=== PATIENT | male | born 1960 | race Caucasian/White ===

== ENCOUNTER 2018-10-24 15:40 | Inpatient (IN) | payer MEDICAID ==
[~2018-10-24] VITALS: Ht 162.6 cm; Wt 68.0 kg
[2018-10-24] MEDS ORDERED: KETOROLAC 30MG/ML VIAL IV STA (16:24)
[2018-10-24] MEDS ORDERED: IPRATROPIUM BROMIDE (0.02%) 0.5MG/2.5ML NEB HHN STA (16:24)
[2018-10-24] MEDS ORDERED: ALBUTEROL (0.083%) 2.5MG/3ML NEB HHN STA (16:24)
[2018-10-24] MEDS ORDERED: ONDANSETRON HCL 4MG/2ML INJ IV STA (16:24)
[2018-10-24] MEDS ORDERED: ASPIRIN 81MG TABLET PO ONE (16:30)
[2018-10-24 16:57] LABS: BASOPHILS % 0.5 % (0.0-2.0); EOSINOPHILS % 2.1 % (0.0-5.0); HEMATOCRIT. 34.7 % (42.0-52.0); HEMOGLOBIN. 10.5 g/dL (14.0-18.0); LYMPHOCYTES % 14.1 % (20.0-50.0); MEAN CORPUSCULAR HEMOGLOBIN 24.4 pg (28.0-32.0); MEAN CORPUSCULAR VOLUME 80.2 fL (80.0-94.0); MEAN PLATELET VOLUME 8.2 fl (7.4-10.4); MONOCYTES % 8.2 % (2.0-8.0); NEUTROPHILS % 75.1 % (40.0-76.0); PLATELET 235 x1000/uL (130-400); RED BLOOD CELL COUNT 4.32 mill/uL (4.7-6.1); RED CELL DISTRIBUTION WIDTH 18.8 % (11.6-14.6)
[2018-10-24 17:05] LABS: CHLORIDE 95 mEq/L (98-107)
[2018-10-24] MEDS ORDERED: METHYLPREDNISOLONE SOD SUCC 125 MG/2 ML VIAL IV ONE (18:15)
[2018-10-25] VITALS (7 sets, daily range): BP systolic 100–110; BP diastolic 51–70
[2018-10-25] MEDS ORDERED: TAMS0.4C31 PO (03:40)
[2018-10-25] MEDS ORDERED: METO25TA6 PO (03:40)
[2018-10-25] MEDS ORDERED: FURO40TA5 PO (03:40)
[2018-10-25] MEDS ORDERED: PANT40TA4 PO (03:40)
[2018-10-25] MEDS ORDERED: ASPI-1158 PO (03:40)
[2018-10-25] MEDS ORDERED: DOCU-286 PO (03:40)
[2018-10-25] MEDS ORDERED: ATROV INH (03:42)
[2018-10-25] MEDS ORDERED: DILT180C51 MT (03:45)
[2018-10-25] MEDS: METHYLPREDNISOLONE SOD SUCC 40 MG/ML VIAL IV SCH ×3 (05:49→21:25)
[2018-10-25] MEDS: PANTOPRAZOLE 40MG DR TABLET PO SCH (06:16)
[2018-10-25] MEDS ORDERED: DOCUSATE SODIUM 100 MG PO SCH (09:00)
[2018-10-25] MEDS ORDERED: DILTIAZEM HCL MT SCH ×2 (09:00)
[2018-10-25] MEDS: METOPROLOL TARTRATE 25MG TABLET PO SCH ×2 (09:00→21:25)
[2018-10-25] MEDS ORDERED: MEDICATION NOT ON FORMULARY EA (Aspirin (Aspirin Ec) 81 MG) PO SCH (09:00)
[2018-10-25] MEDS ORDERED: MEDICATION NOT ON FORMULARY EA (Pantoprazole Sodium 40 MG) PO SCH (09:00)
[2018-10-25] MEDS ORDERED: MEDICATION NOT ON FORMULARY EA (Metoprolol Tartrate 25 MG) PO SCH (09:00)
[2018-10-25] MEDS ORDERED: MEDICATION NOT ON FORMULARY EA (Furosemide 40 MG) PO SCH (09:00)
[2018-10-25] MEDS: IPRATROPIUM/ALBUTEROL 0.5-3(2.5)MG/3ML NEB HHN PRN ×3 (09:14→18:41)
[2018-10-25 09:21] LABS: HEMATOCRIT. 34.4 % (42.0-52.0); HEMOGLOBIN. 10.4 g/dL (14.0-18.0); MEAN CORPUSCULAR HEMOGLOBIN 24.3 pg (28.0-32.0); MEAN CORPUSCULAR VOLUME 80.3 fL (80.0-94.0); MEAN PLATELET VOLUME 8.7 fl (7.4-10.4); PLATELET 224 x1000/uL (130-400); RED BLOOD CELL COUNT 4.28 mill/uL (4.7-6.1); RED CELL DISTRIBUTION WIDTH 18.8 % (11.6-14.6)
[2018-10-25 09:30] LABS: CHLORIDE 94 mEq/L (98-107)
[2018-10-25 10:11] LABS: BG BASE EXCESS 13.4 mmol/L (-2.0-2.0); BG CARBOXYHEMOGLOBIN 2.1 % (0.5-1.5); BG DEOXYHEMOGLOBIN 12.6 % (0.0-5.0); BG FRACTION INSPIRED OXYGEN 32; BG HCO3 ACT 42.8 mmol/L (22.0-26.0); BG METHEMOGLOBIN 0.1 % (0.0-1.5); BG OXYGEN SATURATION 87.1 % (92.0-98.5); BG OXYHEMOGLOBIN 85.2 % (94.0-97.0); BG PCO2 86.5 mmHg (35.0-45.0); BG PH 7.312 (7.350-7.450); BG PO2 57.3 mmHg (75.0-100.0); BG SAMPLE SITE LEFT BRACHIAL; BG TOTAL HEMOGLOBIN 11.1 g/dL (12.0-18.0); BG VENT MODE NASAL CANNULA
[2018-10-25] MEDS: FUROSEMIDE 40MG TABLET PO SCH (10:17)
[2018-10-25] MEDS: DILTIAZEM HCL 180MG CAPSULE CD 24HR PO SCH (10:17)
[2018-10-25] MEDS: DOCUSATE SODIUM 100MG CAPSULE PO SCH (10:18)
[2018-10-25] MEDS: ASPIRIN 81MG TABLET PO SCH (10:18)
[2018-10-25] MEDS: ENOXAPARIN 40MG/0.4ML SYR SUBCUT SCH (10:18)
[2018-10-25] MEDS: TAMSULOSIN HCL 0.4MG SR CAPSULE PO SCH (10:19)
[2018-10-25 11:52] LABS: PLATELET ESTIMATE NORMAL
[2018-10-25] MEDS ORDERED: INFLUENZA VIRUS VACCINE(AFLURIA) 0.5ML SYR IM ONE (12:00)
[2018-10-25] MEDS: HYDROCODONE/ACETAMINOPHEN 5/325MG TABLET PO PRN (21:30)
[2018-10-26] VITALS: BP 120/72
[2018-10-26 04:00] VITALS: BP 112/72
[2018-10-26] MEDS: METHYLPREDNISOLONE SOD SUCC 40 MG/ML VIAL IV SCH ×3 (06:33→21:07)
[2018-10-26] MEDS: PANTOPRAZOLE 40MG DR TABLET PO SCH (06:33)
[2018-10-26 07:30] LABS: HEMATOCRIT. 31.4 % (42.0-52.0); HEMOGLOBIN. 9.4 g/dL (14.0-18.0); MEAN PLATELET VOLUME 8.9 fl (7.4-10.4); PLATELET 191 x1000/uL (130-400); RED BLOOD CELL COUNT 3.93 mill/uL (4.7-6.1); RED CELL DISTRIBUTION WIDTH 18.7 % (11.6-14.6)
[2018-10-26 07:46] LABS: CHLORIDE 93 mEq/L (98-107)
[2018-10-26 08:00] VITALS: BP 103/58
[2018-10-26 08:26] LABS: BG BASE EXCESS 19.5 mmol/L (-2.0-2.0); BG CARBOXYHEMOGLOBIN 0.5 % (0.5-1.5); BG DEOXYHEMOGLOBIN 5.1 % (0.0-5.0); BG FRACTION INSPIRED OXYGEN 32; BG HCO3 ACT 46.8 mmol/L (22.0-26.0); BG METHEMOGLOBIN 0.3 % (0.0-1.5); BG OXYGEN SATURATION 94.9 % (92.0-98.5); BG OXYHEMOGLOBIN 94.1 % (94.0-97.0); BG PH 7.443 (7.350-7.450); BG PO2 75.1 mmHg (75.0-100.0); BG SAMPLE SITE RIGHT BRACHIAL; BG TOTAL HEMOGLOBIN 10.9 g/dL (12.0-18.0); BG VENT MODE NASAL CANNULA
[2018-10-26] MEDS: DILTIAZEM HCL 180MG CAPSULE CD 24HR PO SCH (09:00)
[2018-10-26] MEDS: METOPROLOL TARTRATE 25MG TABLET PO SCH ×2 (09:00→21:00)
[2018-10-26] MEDS: TAMSULOSIN HCL 0.4MG SR CAPSULE PO SCH (09:53)
[2018-10-26] MEDS: ENOXAPARIN 40MG/0.4ML SYR SUBCUT SCH (09:53)
[2018-10-26] MEDS: FUROSEMIDE 40MG TABLET PO SCH (09:53)
[2018-10-26] MEDS: DOCUSATE SODIUM 100MG CAPSULE PO SCH (09:53)
[2018-10-26] MEDS: ASPIRIN 81MG TABLET PO SCH (09:54)
[2018-10-26 12:00] VITALS: BP 106/64
[2018-10-26 16:49] VITALS: BP 112/70
[2018-10-26 19:45] VITALS: BP 102/67
[2018-10-26 20:59] LABS: PLATELET ESTIMATE NORMAL
[2018-10-27] VITALS: BP 105/62
[2018-10-27 04:00] VITALS: BP 110/66
[2018-10-27] MEDS: METHYLPREDNISOLONE SOD SUCC 40 MG/ML VIAL IV SCH ×3 (06:37→20:55)
[2018-10-27] MEDS: PANTOPRAZOLE 40MG DR TABLET PO SCH (06:37)
[2018-10-27 08:13] VITALS: BP 110/64
[2018-10-27] MEDS: FUROSEMIDE 40MG TABLET PO SCH (08:22)
[2018-10-27] MEDS: DOCUSATE SODIUM 100MG CAPSULE PO SCH (08:22)
[2018-10-27] MEDS: METOPROLOL TARTRATE 25MG TABLET PO SCH ×2 (08:22→20:54)
[2018-10-27] MEDS: ENOXAPARIN 40MG/0.4ML SYR SUBCUT SCH (08:22)
[2018-10-27] MEDS: DILTIAZEM HCL 180MG CAPSULE CD 24HR PO SCH (08:22)
[2018-10-27] MEDS: ASPIRIN 81MG TABLET PO SCH (08:23)
[2018-10-27] MEDS: TAMSULOSIN HCL 0.4MG SR CAPSULE PO SCH (08:23)
[2018-10-27 12:20] VITALS: BP 104/62
[2018-10-27] MEDS: IPRATROPIUM/ALBUTEROL 0.5-3(2.5)MG/3ML NEB HHN PRN ×2 (16:05→21:32)
[2018-10-27 16:30] VITALS: BP 121/58
[2018-10-27 20:00] VITALS: BP 113/61
[2018-10-27] MEDS ORDERED: THROAT LOZENGES-BENZOCAINE/MENTH/CETYLPYRD CL LOZENGES MM PRN (20:15)
[2018-10-27] MEDS: ALPRAZOLAM 0.5 MG TABLET PO PRN (20:54)
[2018-10-28] VITALS (14 sets, daily range): BP systolic 100–128; BP diastolic 59–71
[2018-10-28] MEDS: IPRATROPIUM/ALBUTEROL 0.5-3(2.5)MG/3ML NEB HHN PRN ×4 (01:12→13:08)
[2018-10-28] MEDS: METHYLPREDNISOLONE SOD SUCC 40 MG/ML VIAL IV SCH ×3 (06:01→22:38)
[2018-10-28] MEDS: DILTIAZEM HCL 180MG CAPSULE CD 24HR PO SCH (09:00)
[2018-10-28] MEDS: METOPROLOL TARTRATE 25MG TABLET PO SCH ×2 (09:00→21:00)
[2018-10-28] MEDS: FAMOTIDINE 20MG TABLET PO SCH ×2 (09:32→21:00)
[2018-10-28] MEDS: DOCUSATE SODIUM 100MG CAPSULE PO SCH (09:32)
[2018-10-28] MEDS: TAMSULOSIN HCL 0.4MG SR CAPSULE PO SCH (09:33)
[2018-10-28] MEDS: FUROSEMIDE 40MG TABLET PO SCH (09:33)
[2018-10-28] MEDS: ASPIRIN 81MG TABLET PO SCH (09:33)
[2018-10-28] MEDS: ENOXAPARIN 40MG/0.4ML SYR SUBCUT SCH (09:33)
[2018-10-28 13:54] LABS: BG BASE EXCESS 21.3 mmol/L (-2.0-2.0); BG BILEVEL POS AIRWAY PRESSURE ST=15/5; BG CARBOXYHEMOGLOBIN 0.8 % (0.5-1.5); BG DEOXYHEMOGLOBIN 4.5 % (0.0-5.0); BG FRACTION INSPIRED OXYGEN 50+; BG METHEMOGLOBIN 0.4 % (0.0-1.5); BG OXYGEN SATURATION 95.4 % (92.0-98.5); BG OXYHEMOGLOBIN 94.3 % (94.0-97.0); BG PCO2 85.1 mmHg (35.0-45.0); BG PH 7.387 (7.350-7.450); BG PO2 77.1 mmHg (75.0-100.0); BG SAMPLE SITE LEFT BRACHIAL; BG TOTAL HEMOGLOBIN 10.5 g/dL (12.0-18.0); BG VENT MODE MASK - BIPAP; BG VENT RATE 16 set
[2018-10-28] MEDS ORDERED: IOHEXOL-350 100 ML BOTTLE ONE (23:06)
[2018-10-28] MEDS ORDERED: HEPARIN BOLUS PRN aPTT <36 IV (23:30)
[2018-10-28] MEDS ORDERED: HEPARIN BOLUS PRN aPTT 37-44 IV (23:30)
[2018-10-28 23:59] LABS: BG BASE EXCESS 23.8 mmol/L (-2.0-2.0); BG BILEVEL POS AIRWAY PRESSURE 18/8; BG CARBOXYHEMOGLOBIN 0.4 % (0.5-1.5); BG DEOXYHEMOGLOBIN 1.4 % (0.0-5.0); BG FRACTION INSPIRED OXYGEN 100; BG HCO3 ACT 55.4 mmol/L (22.0-26.0); BG METHEMOGLOBIN 0.4 % (0.0-1.5); BG OXYGEN SATURATION 98.6 % (92.0-98.5); BG OXYHEMOGLOBIN 97.8 % (94.0-97.0); BG PCO2 117.6 mmHg (35.0-45.0); BG PH 7.291 (7.350-7.450); BG PO2 135.4 mmHg (75.0-100.0); BG SAMPLE SITE RIGHT RADIAL; BG TIDAL VOLUME(mL) 465 mL; BG TOTAL HEMOGLOBIN 10.8 g/dL (12.0-18.0); BG VENT MODE MASK - BIPAP; BG VENT RATE 20 set
[2018-10-29] VITALS (90 sets, daily range): BP systolic 77–120; BP diastolic 48–86
[2018-10-29] MEDS ORDERED: HEPARIN 25,000 UNITS PREMIX 500 ML IV SCH (00:30)
[2018-10-29] MEDS ORDERED: HEPARIN 80 UNITS/KG BOLUS IV SCH (00:30)
[2018-10-29 00:37] LABS: PARTIAL THROMBOPLASTIN TIME 27.3 sec (23.4-31.0); PROTHROMBIN TIME 10.3 sec (9.1-11.1)
[2018-10-29] MEDS: DILTIAZEM HCL 125 MG in DEXT 5% WATER 100 ML IV PRN ×2 (03:22→17:31)
[2018-10-29] MEDS: METHYLPREDNISOLONE SOD SUCC 40 MG/ML VIAL IV SCH ×3 (06:17→21:57)
[2018-10-29 08:15] LABS: BG BASE EXCESS 20.3 mmol/L (-2.0-2.0); BG BILEVEL POS AIRWAY PRESSURE 18/5; BG CARBOXYHEMOGLOBIN 0.5 % (0.5-1.5); BG DEOXYHEMOGLOBIN 3.9 % (0.0-5.0); BG FRACTION INSPIRED OXYGEN 75; BG HCO3 ACT 48.8 mmol/L (22.0-26.0); BG METHEMOGLOBIN 0.2 % (0.0-1.5); BG OXYGEN SATURATION 96.1 % (92.0-98.5); BG OXYHEMOGLOBIN 95.4 % (94.0-97.0); BG PCO2 81.3 mmHg (35.0-45.0); BG PH 7.396 (7.350-7.450); BG PO2 77.6 mmHg (75.0-100.0); BG SAMPLE SITE RIGHT BRACHIAL; BG TOTAL HEMOGLOBIN 10.6 g/dL (12.0-18.0); BG VENT MODE MASK - BIPAP
[2018-10-29] MEDS: TAMSULOSIN HCL 0.4MG SR CAPSULE PO SCH ×2 (09:00→09:37)
[2018-10-29] MEDS: METOPROLOL TARTRATE 25MG TABLET PO SCH (09:00)
[2018-10-29] MEDS: ASPIRIN 81MG TABLET PO SCH (09:37)
[2018-10-29] MEDS: FAMOTIDINE 20MG TABLET PO SCH ×2 (09:37→21:57)
[2018-10-29] MEDS: DOCUSATE SODIUM 100MG CAPSULE PO SCH (09:37)
[2018-10-29] MEDS ORDERED: SODIUM CHLORIDE 0.9% 250 ML IV NR (10:45)
[2018-10-29] MEDS ORDERED: DIGOXIN 500MCG/2ML AMP IV NR (10:45)
[2018-10-29 11:45] LABS: HEMATOCRIT. 30.9 % (42.0-52.0); HEMOGLOBIN. 9.2 g/dL (14.0-18.0); MEAN CORPUSCULAR HEMOGLOBIN 24.1 pg (28.0-32.0); MEAN CORPUSCULAR VOLUME 81.4 fL (80.0-94.0); MEAN PLATELET VOLUME 8.9 fl (7.4-10.4); PLATELET 130 x1000/uL (130-400); RED BLOOD CELL COUNT 3.79 mill/uL (4.7-6.1); RED CELL DISTRIBUTION WIDTH 18.8 % (11.6-14.6)
[2018-10-29 11:57] LABS: CHLORIDE 89 mEq/L (98-107)
[2018-10-29] MEDS ORDERED: ENOXAPARIN 60MG/0.6ML SYR SUBCUT SCH (12:00)
[2018-10-29] MEDS ORDERED: KETOROLAC 15MG/ML VIAL IV NR (12:30)
[2018-10-29] MEDS: LEVOFLOXACIN 500MG PREMIX 100 ML IV SCH (12:33)
[2018-10-29 13:51] LABS: PLATELET ESTIMATE NORMAL
[2018-10-29] MEDS: ALPRAZOLAM 0.5 MG TABLET PO PRN (19:36)
[2018-10-29] MEDS: ENOXAPARIN 60MG/0.6ML SYR SUBCUT SCH (21:57)
[2018-10-29] MEDS: HYDROCODONE/ACETAMINOPHEN 5/325MG TABLET PO PRN (21:57)
[2018-10-30] VITALS (63 sets, daily range): BP systolic 83–119; BP diastolic 53–75
[2018-10-30 05:42] LABS: CHLORIDE 89 mEq/L (98-107)
[2018-10-30 05:51] LABS: HEMATOCRIT. 31.3 % (42.0-52.0); HEMOGLOBIN. 9.2 g/dL (14.0-18.0); MEAN CORPUSCULAR HEMOGLOBIN 24.1 pg (28.0-32.0); MEAN CORPUSCULAR VOLUME 81.7 fL (80.0-94.0); MEAN PLATELET VOLUME 9.3 fl (7.4-10.4); PLATELET 119 x1000/uL (130-400); RED BLOOD CELL COUNT 3.83 mill/uL (4.7-6.1); RED CELL DISTRIBUTION WIDTH 18.5 % (11.6-14.6)
[2018-10-30 05:56] LABS: LDL CHOLESTEROL 27 mg/dL (5-100)
[2018-10-30 05:58] LABS: HDL CHOLESTEROL 66 mg/dL (40-59)
[2018-10-30] MEDS: METHYLPREDNISOLONE SOD SUCC 40 MG/ML VIAL IV SCH ×3 (06:06→21:50)
[2018-10-30] MEDS: IPRATROPIUM/ALBUTEROL 0.5-3(2.5)MG/3ML NEB HHN PRN ×2 (07:51→15:37)
[2018-10-30 08:13] LABS: PLATELET ESTIMATE SLIGHTLY DECREASED
[2018-10-30 08:59] LABS: BG BASE EXCESS 24.4 mmol/L (-2.0-2.0); BG BILEVEL POS AIRWAY PRESSURE 18/5; BG CARBOXYHEMOGLOBIN 0.4 % (0.5-1.5); BG DEOXYHEMOGLOBIN 4.5 % (0.0-5.0); BG FRACTION INSPIRED OXYGEN 60; BG HCO3 ACT 53.9 mmol/L (22.0-26.0); BG METHEMOGLOBIN 0.3 % (0.0-1.5); BG OXYGEN SATURATION 95.5 % (92.0-98.5); BG OXYHEMOGLOBIN 94.8 % (94.0-97.0); BG PCO2 94.8 mmHg (35.0-45.0); BG PH 7.373 (7.350-7.450); BG PO2 80.9 mmHg (75.0-100.0); BG SAMPLE SITE RIGHT RADIAL; BG TOTAL HEMOGLOBIN 10.3 g/dL (12.0-18.0); BG VENT MODE MASK - BIPAP; BG VENT RATE 20 set
[2018-10-30] MEDS: TAMSULOSIN HCL 0.4MG SR CAPSULE PO SCH (09:00)
[2018-10-30] MEDS: FAMOTIDINE 20MG TABLET PO SCH ×2 (09:27→21:47)
[2018-10-30] MEDS: ALPRAZOLAM 0.5 MG TABLET PO PRN ×2 (09:28→23:58)
[2018-10-30] MEDS: ASPIRIN 81MG TABLET PO SCH (09:28)
[2018-10-30] MEDS: ENOXAPARIN 60MG/0.6ML SYR SUBCUT SCH (09:28)
[2018-10-30] MEDS: DOCUSATE SODIUM 100MG CAPSULE PO SCH (09:30)
[2018-10-30 09:50] LABS: T4 FREE 0.85 ng/dL (0.76-1.46)
[2018-10-30] MEDS: LEVOFLOXACIN 500MG PREMIX 100 ML IV SCH (12:35)
[2018-10-30 12:43] LABS: *AMPHETAMINES SCREEN URINE NEGATIVE (NEGATIVE); *BARBITURATES SCREEN URINE NEGATIVE (NEGATIVE); *BENZODIAZEPINES SCREEN URINE PRESUMTIVE POSITIVE (NEGATIVE); *COCAINE SCREEN URINE NEGATIVE (NEGATIVE); METHADONE URINE SCREEN NEGATIVE (NEGATIVE); OPIATES URINE SCREEN PRESUMTIVE POSITIVE (NEGATIVE)
[2018-10-30 12:44] LABS: CANNABINOID URINE SCREEN NEGATIVE (NEGATIVE); PHENCYCLIDINE URINE SCREEN NEGATIVE (NEGATIVE)
[2018-10-30] MEDS ORDERED: DIGOXIN 500MCG/2ML AMP IV ONE ×2 (13:45→19:45)
[2018-10-30] MEDS: DILTIAZEM HCL 30MG TABLET PO SCH ×2 (13:50→21:49)
[2018-10-30] MEDS: KETOROLAC 30MG/ML VIAL IV PRN (18:02)
[2018-10-30] MEDS ORDERED: MORPHINE SULFATE 4 MG/ML CPJ (NOT FOR IM USE) IV NR (20:23)
[2018-10-31] VITALS (51 sets, daily range): BP systolic 95–130; BP diastolic 54–109
[2018-10-31] MEDS ORDERED: DIGOXIN 500MCG/2ML AMP IV ONE (01:45)
[2018-10-31 05:59] LABS: HEMATOCRIT. 32.3 % (42.0-52.0); HEMOGLOBIN. 9.3 g/dL (14.0-18.0); MEAN CORPUSCULAR HEMOGLOBIN 23.9 pg (28.0-32.0); MEAN CORPUSCULAR VOLUME 82.5 fL (80.0-94.0); PLATELET 128 x1000/uL (130-400); RED BLOOD CELL COUNT 3.91 mill/uL (4.7-6.1); RED CELL DISTRIBUTION WIDTH 18.9 % (11.6-14.6)
[2018-10-31] MEDS: DILTIAZEM HCL 30MG TABLET PO SCH ×3 (06:00→22:25)
[2018-10-31 06:11] LABS: CHLORIDE 89 mEq/L (98-107)
[2018-10-31] MEDS: METHYLPREDNISOLONE SOD SUCC 40 MG/ML VIAL IV SCH ×3 (06:27→22:16)
[2018-10-31] MEDS: IPRATROPIUM/ALBUTEROL 0.5-3(2.5)MG/3ML NEB HHN PRN ×3 (08:07→15:41)
[2018-10-31 08:19] LABS: PLATELET ESTIMATE SLIGHTLY DECREASED
[2018-10-31 08:50] LABS: BG BILEVEL POS AIRWAY PRESSURE 18/5; BG CARBOXYHEMOGLOBIN 0.9 % (0.5-1.5); BG FRACTION INSPIRED OXYGEN 55; BG HCO3 ACT 62.2 mmol/L (22.0-26.0); BG METHEMOGLOBIN 0.3 % (0.0-1.5); BG OXYGEN SATURATION 93.9 % (92.0-98.5); BG OXYHEMOGLOBIN 92.8 % (94.0-97.0); BG PCO2 127.3 mmHg (35.0-45.0); BG PH 7.307 (7.350-7.450); BG PO2 74.7 mmHg (75.0-100.0); BG SAMPLE SITE RIGHT BRACHIAL; BG TOTAL HEMOGLOBIN 12.4 g/dL (12.0-18.0); BG VENT MODE MASK - BIPAP
[2018-10-31] MEDS: FAMOTIDINE 20MG TABLET PO SCH ×2 (09:28→22:16)
[2018-10-31] MEDS: TAMSULOSIN HCL 0.4MG SR CAPSULE PO SCH (09:28)
[2018-10-31] MEDS: DOCUSATE SODIUM 100MG CAPSULE PO SCH (09:28)
[2018-10-31] MEDS: ASPIRIN 81MG TABLET PO SCH (09:28)
[2018-10-31] MEDS: LEVOFLOXACIN 500MG PREMIX 100 ML IV SCH (12:51)
[2018-10-31] MEDS: DIGOXIN 250MCG TABLET PO SCH (18:39)
[2018-10-31] MEDS: KETOROLAC 30MG/ML VIAL IV PRN (22:24)
[2018-10-31] MEDS: ALPRAZOLAM 0.5 MG TABLET PO PRN (22:25)
[2018-11-01] VITALS (51 sets, daily range): BP systolic 90–136; BP diastolic 39–74
[2018-11-01] MEDS: IPRATROPIUM/ALBUTEROL 0.5-3(2.5)MG/3ML NEB HHN PRN ×6 (00:25→21:59)
[2018-11-01 05:34] LABS: HEMATOCRIT. 33.1 % (42.0-52.0); HEMOGLOBIN. 9.6 g/dL (14.0-18.0); MEAN CORPUSCULAR HEMOGLOBIN 23.7 pg (28.0-32.0); MEAN CORPUSCULAR VOLUME 81.8 fL (80.0-94.0); MEAN PLATELET VOLUME 9.1 fl (7.4-10.4); PLATELET 128 x1000/uL (130-400); RED BLOOD CELL COUNT 4.05 mill/uL (4.7-6.1); RED CELL DISTRIBUTION WIDTH 19.4 % (11.6-14.6)
[2018-11-01 05:40] LABS: CHLORIDE 89 mEq/L (98-107)
[2018-11-01] MEDS: DILTIAZEM HCL 30MG TABLET PO SCH ×3 (06:00→21:23)
[2018-11-01] MEDS: METHYLPREDNISOLONE SOD SUCC 40 MG/ML VIAL IV SCH ×3 (06:48→21:23)
[2018-11-01] MEDS: ALPRAZOLAM 0.5 MG TABLET PO PRN (08:26)
[2018-11-01] MEDS: DOCUSATE SODIUM 100MG CAPSULE PO SCH (08:26)
[2018-11-01] MEDS: ASPIRIN 81MG TABLET PO SCH (08:26)
[2018-11-01] MEDS: FAMOTIDINE 20MG TABLET PO SCH ×2 (08:26→21:23)
[2018-11-01] MEDS: TAMSULOSIN HCL 0.4MG SR CAPSULE PO SCH (08:27)
[2018-11-01 11:30] LABS: PLATELET ESTIMATE SLIGHTLY DECREASED
[2018-11-01] MEDS: LEVOFLOXACIN 500MG PREMIX 100 ML IV SCH (13:04)
[2018-11-01] MEDS: DIGOXIN 250MCG TABLET PO SCH (19:12)
[2018-11-02] VITALS (49 sets, daily range): BP systolic 77–140; BP diastolic 44–105
[2018-11-02] MEDS: KETOROLAC 30MG/ML VIAL IV PRN ×2 (00:40→13:30)
[2018-11-02] MEDS: IPRATROPIUM/ALBUTEROL 0.5-3(2.5)MG/3ML NEB HHN PRN ×4 (02:39→20:51)
[2018-11-02] MEDS: ALPRAZOLAM 0.5 MG TABLET PO PRN ×2 (04:03→09:33)
[2018-11-02 05:57] LABS: HEMATOCRIT. 30.2 % (42.0-52.0); HEMOGLOBIN. 8.8 g/dL (14.0-18.0); MEAN CORPUSCULAR HEMOGLOBIN 23.7 pg (28.0-32.0); MEAN CORPUSCULAR VOLUME 81.7 fL (80.0-94.0); MEAN PLATELET VOLUME 9.3 fl (7.4-10.4); PLATELET 133 x1000/uL (130-400); RED CELL DISTRIBUTION WIDTH 19.1 % (11.6-14.6)
[2018-11-02] MEDS: DILTIAZEM HCL 30MG TABLET PO SCH ×3 (06:01→21:58)
[2018-11-02] MEDS: METHYLPREDNISOLONE SOD SUCC 40 MG/ML VIAL IV SCH ×3 (06:01→21:58)
[2018-11-02 06:03] LABS: CHLORIDE 90 mEq/L (98-107)
[2018-11-02 06:27] LABS: DIGOXIN 1.5 ng/mL (0.9-2.0)
[2018-11-02 08:19] LABS: PLATELET ESTIMATE NORMAL
[2018-11-02] MEDS: FAMOTIDINE 20MG TABLET PO SCH ×2 (09:33→21:58)
[2018-11-02] MEDS: ASPIRIN 81MG TABLET PO SCH (09:34)
[2018-11-02] MEDS: TAMSULOSIN HCL 0.4MG SR CAPSULE PO SCH (09:34)
[2018-11-02] MEDS: DOCUSATE SODIUM 100MG CAPSULE PO SCH (09:34)
[2018-11-02 10:04] LABS: BG BASE EXCESS 20.6 mmol/L (-2.0-2.0); BG BILEVEL POS AIRWAY PRESSURE ST=18/5; BG CARBOXYHEMOGLOBIN 0.5 % (0.5-1.5); BG DEOXYHEMOGLOBIN 3.8 % (0.0-5.0); BG FRACTION INSPIRED OXYGEN 55; BG HCO3 ACT 50.2 mmol/L (22.0-26.0); BG METHEMOGLOBIN 0.3 % (0.0-1.5); BG OXYGEN SATURATION 96.2 % (92.0-98.5); BG OXYHEMOGLOBIN 95.4 % (94.0-97.0); BG PCO2 94.5 mmHg (35.0-45.0); BG PH 7.343 (7.350-7.450); BG PO2 86.1 mmHg (75.0-100.0); BG PRESSURE SUPPORT 13; BG SAMPLE SITE RIGHT RADIAL; BG TOTAL HEMOGLOBIN 10.3 g/dL (12.0-18.0); BG VENT MODE MASK - BIPAP; BG VENT RATE 20 set
[2018-11-02] MEDS: LEVOFLOXACIN 500MG PREMIX 100 ML IV SCH (12:32)
[2018-11-02] MEDS: DIGOXIN 250MCG TABLET PO SCH (20:45)
[2018-11-03] VITALS (47 sets, daily range): BP systolic 93–139; BP diastolic 45–86
[2018-11-03] MEDS: IPRATROPIUM/ALBUTEROL 0.5-3(2.5)MG/3ML NEB HHN PRN ×4 (00:51→17:03)
[2018-11-03 05:39] LABS: HEMATOCRIT. 31.5 % (42.0-52.0); HEMOGLOBIN. 9.1 g/dL (14.0-18.0); MEAN CORPUSCULAR HEMOGLOBIN 23.8 pg (28.0-32.0); MEAN CORPUSCULAR VOLUME 82.2 fL (80.0-94.0); MEAN PLATELET VOLUME 9.9 fl (7.4-10.4); PLATELET 157 x1000/uL (130-400); RED BLOOD CELL COUNT 3.83 mill/uL (4.7-6.1); RED CELL DISTRIBUTION WIDTH 19.3 % (11.6-14.6)
[2018-11-03] MEDS: METHYLPREDNISOLONE SOD SUCC 40 MG/ML VIAL IV SCH ×3 (05:52→21:37)
[2018-11-03] MEDS: DILTIAZEM HCL 30MG TABLET PO SCH ×3 (05:53→21:37)
[2018-11-03 06:12] LABS: CHLORIDE 90 mEq/L (98-107)
[2018-11-03 08:05] LABS: PLATELET ESTIMATE NORMAL
[2018-11-03] MEDS: ALPRAZOLAM 0.5 MG TABLET PO PRN (08:06)
[2018-11-03] MEDS: FAMOTIDINE 20MG TABLET PO SCH ×2 (08:06→21:37)
[2018-11-03] MEDS: DOCUSATE SODIUM 100MG CAPSULE PO SCH (08:06)
[2018-11-03] MEDS: TAMSULOSIN HCL 0.4MG SR CAPSULE PO SCH (08:06)
[2018-11-03] MEDS: ASPIRIN 81MG TABLET PO SCH (08:06)
[2018-11-03] MEDS ORDERED: NITROGLYCERIN OINT 1GM/INCH UDPKT TD NR (09:45)
[2018-11-03] MEDS: LEVOFLOXACIN 500MG PREMIX 100 ML IV SCH (13:10)
[2018-11-03] MEDS: NITROGLYCERIN OINT 1GM/INCH UDPKT TD SCH ×2 (13:11→21:38)
[2018-11-03] MEDS: DIGOXIN 250MCG TABLET PO SCH (18:42)
[2018-11-04] VITALS (82 sets, daily range): BP systolic 76–152; BP diastolic 43–84
[2018-11-04] MEDS: NITROGLYCERIN OINT 1GM/INCH UDPKT TD SCH ×3 (06:45→21:24)
[2018-11-04] MEDS: DILTIAZEM HCL 30MG TABLET PO SCH ×3 (06:46→21:23)
[2018-11-04] MEDS: METHYLPREDNISOLONE SOD SUCC 40 MG/ML VIAL IV SCH ×3 (06:46→21:23)
[2018-11-04] MEDS: TAMSULOSIN HCL 0.4MG SR CAPSULE PO SCH (08:19)
[2018-11-04] MEDS: ASPIRIN 81MG TABLET PO SCH (08:19)
[2018-11-04] MEDS: DOCUSATE SODIUM 100MG CAPSULE PO SCH (08:19)
[2018-11-04] MEDS: ALPRAZOLAM 0.5 MG TABLET PO PRN (08:19)
[2018-11-04] MEDS: FAMOTIDINE 20MG TABLET PO SCH ×2 (08:20→21:22)
[2018-11-04] MEDS: IPRATROPIUM/ALBUTEROL 0.5-3(2.5)MG/3ML NEB HHN PRN ×3 (08:35→20:23)
[2018-11-04 09:53] LABS: BG BASE EXCESS 31.2 mmol/L (-2.0-2.0); BG BILEVEL POS AIRWAY PRESSURE 18/5; BG CARBOXYHEMOGLOBIN 0.5 % (0.5-1.5); BG DEOXYHEMOGLOBIN 10.5 % (0.0-5.0); BG FRACTION INSPIRED OXYGEN 60; BG HCO3 ACT 63.9 mmol/L (22.0-26.0); BG METHEMOGLOBIN 0.3 % (0.0-1.5); BG OXYGEN SATURATION 89.4 % (92.0-98.5); BG OXYHEMOGLOBIN 88.7 % (94.0-97.0); BG PCO2 128.9 mmHg (35.0-45.0); BG PH 7.313 (7.350-7.450); BG PO2 61.2 mmHg (75.0-100.0); BG SAMPLE SITE RIGHT RADIAL; BG TOTAL HEMOGLOBIN 11.2 g/dL (12.0-18.0); BG VENT MODE MASK - BIPAP
[2018-11-04] MEDS: PROPOFOL 10MG/ML 100ML 100 ML IV PRN ×3 (11:51→22:21)
[2018-11-04 11:52] LABS: BG BASE EXCESS 30.8 mmol/L (-2.0-2.0); BG CARBOXYHEMOGLOBIN 0.6 % (0.5-1.5); BG DEOXYHEMOGLOBIN 1.1 % (0.0-5.0); BG FRACTION INSPIRED OXYGEN 100; BG METHEMOGLOBIN 0.4 % (0.0-1.5); BG OXYGEN SATURATION 98.9 % (92.0-98.5); BG OXYHEMOGLOBIN 97.9 % (94.0-97.0); BG PCO2 122.8 mmHg (35.0-45.0); BG PH 7.328 (7.350-7.450); BG PO2 140.8 mmHg (75.0-100.0); BG SAMPLE SITE RIGHT BRACHIAL; BG TIDAL VOLUME(mL) 500 mL; BG TOTAL HEMOGLOBIN 11.1 g/dL (12.0-18.0); BG VENT MODE VENT - A/C; BG VENT RATE 14 set
[2018-11-04] MEDS ORDERED: ETOMIDATE 2MG/ML 10ML VIAL IV ONE (13:19)
[2018-11-04] MEDS ORDERED: SUCCINYLCHOLINE CHLORIDE 200MG/10ML IV ONE (13:19)
[2018-11-04] MEDS: LEVOFLOXACIN 500MG PREMIX 100 ML IV SCH (14:44)
[2018-11-04] MEDS: DILTIAZEM HCL 125 MG in DEXT 5% WATER 100 ML IV PRN ×2 (15:21→22:06)
[2018-11-04 17:55] LABS: BG BASE EXCESS 22.3 mmol/L (-2.0-2.0); BG CARBOXYHEMOGLOBIN 0.5 % (0.5-1.5); BG DEOXYHEMOGLOBIN 7.5 % (0.0-5.0); BG FRACTION INSPIRED OXYGEN 70; BG HCO3 ACT 50.3 mmol/L (22.0-26.0); BG OXYGEN SATURATION 92.5 % (92.0-98.5); BG PCO2 75.1 mmHg (35.0-45.0); BG PH 7.444 (7.350-7.450); BG PO2 58.2 mmHg (75.0-100.0); BG SAMPLE SITE RIGHT BRACHIAL; BG TIDAL VOLUME(mL) 500 mL; BG TOTAL HEMOGLOBIN 11.5 g/dL (12.0-18.0); BG VENT MODE VENT - A/C; BG VENT RATE 14 set
[2018-11-04] MEDS: DIGOXIN 250MCG TABLET PO SCH (19:00)
[2018-11-05] VITALS (82 sets, daily range): BP systolic 93–129; BP diastolic 51–80
[2018-11-05] MEDS: IPRATROPIUM/ALBUTEROL 0.5-3(2.5)MG/3ML NEB HHN PRN ×5 (01:04→15:31)
[2018-11-05] MEDS: NITROGLYCERIN OINT 1GM/INCH UDPKT TD SCH ×3 (05:36→21:03)
[2018-11-05] MEDS: METHYLPREDNISOLONE SOD SUCC 40 MG/ML VIAL IV SCH ×3 (05:36→21:03)
[2018-11-05] MEDS: DILTIAZEM HCL 30MG TABLET PO SCH ×3 (05:36→21:03)
[2018-11-05 06:02] LABS: HEMATOCRIT. 32.9 % (42.0-52.0); HEMOGLOBIN. 9.5 g/dL (14.0-18.0); MEAN CORPUSCULAR HEMOGLOBIN 23.5 pg (28.0-32.0); MEAN CORPUSCULAR VOLUME 81.3 fL (80.0-94.0); PLATELET 165 x1000/uL (130-400); RED BLOOD CELL COUNT 4.05 mill/uL (4.7-6.1); RED CELL DISTRIBUTION WIDTH 19.7 % (11.6-14.6)
[2018-11-05 06:08] LABS: CHLORIDE 92 mEq/L (98-107)
[2018-11-05 07:18] LABS: PHOSPHORUS 2.2 mg/dL (2.5-4.9)
[2018-11-05 08:29] LABS: BG BASE EXCESS 25.9 mmol/L (-2.0-2.0); BG CARBOXYHEMOGLOBIN 0.3 % (0.5-1.5); BG DEOXYHEMOGLOBIN 3.1 % (0.0-5.0); BG FRACTION INSPIRED OXYGEN 75; BG HCO3 ACT 54.6 mmol/L (22.0-26.0); BG METHEMOGLOBIN 0.1 % (0.0-1.5); BG OXYGEN SATURATION 96.9 % (92.0-98.5); BG OXYHEMOGLOBIN 96.5 % (94.0-97.0); BG PCO2 83.5 mmHg (35.0-45.0); BG PH 7.433 (7.350-7.450); BG PO2 87.1 mmHg (75.0-100.0); BG SAMPLE SITE RIGHT BRACHIAL; BG TIDAL VOLUME(mL) 500 mL; BG TOTAL HEMOGLOBIN 10.7 g/dL (12.0-18.0); BG VENT MODE VENT - A/C; BG VENT RATE 14 set
[2018-11-05] MEDS: ASPIRIN 81MG TABLET PO SCH (09:00)
[2018-11-05] MEDS: FAMOTIDINE 20MG TABLET PO SCH ×2 (09:06→21:03)
[2018-11-05] MEDS: DOCUSATE SODIUM SUGAR FREE 100MG/10ML UDC NG SCH (09:06)
[2018-11-05] MEDS: TAMSULOSIN HCL 0.4MG SR CAPSULE PO SCH (11:11)
[2018-11-05] MEDS: LEVOFLOXACIN 500MG PREMIX 100 ML IV SCH (11:21)
[2018-11-05 13:22] LABS: PLATELET ESTIMATE NORMAL
[2018-11-05] MEDS: DIGOXIN 250MCG TABLET PO SCH (17:58)
[2018-11-05] MEDS: PROPOFOL 10MG/ML 100ML 100 ML IV PRN (19:52)
[2018-11-05] MEDS: ACETAMINOPHEN 650MG/20.3ML UDC NG PRN (23:20)
[2018-11-05] MEDS: SODIUM CHLORIDE 0.9% 1,000 ML IV SCH (23:58)
[2018-11-06] VITALS (67 sets, daily range): BP systolic 72–157; BP diastolic 35–81
[2018-11-06] MEDS: PROPOFOL 10MG/ML 100ML 100 ML IV PRN ×2 (02:58→18:24)
[2018-11-06 05:36] LABS: INR 1.1; PARTIAL THROMBOPLASTIN TIME 24.4 sec (23.4-31.0); PROTHROMBIN TIME 10.7 sec (9.1-11.1)
[2018-11-06] MEDS: DILTIAZEM HCL 30MG TABLET PO SCH ×3 (06:00→21:32)
[2018-11-06] MEDS: NITROGLYCERIN OINT 1GM/INCH UDPKT TD SCH ×3 (06:32→22:00)
[2018-11-06] MEDS: METHYLPREDNISOLONE SOD SUCC 40 MG/ML VIAL IV SCH ×3 (06:32→22:00)
[2018-11-06 08:03] LABS: BG BASE EXCESS 22.7 mmol/L (-2.0-2.0); BG CARBOXYHEMOGLOBIN 0.3 % (0.5-1.5); BG DEOXYHEMOGLOBIN 4.5 % (0.0-5.0); BG FRACTION INSPIRED OXYGEN 75; BG HCO3 ACT 49.8 mmol/L (22.0-26.0); BG METHEMOGLOBIN 0.3 % (0.0-1.5); BG OXYGEN SATURATION 95.5 % (92.0-98.5); BG OXYHEMOGLOBIN 94.9 % (94.0-97.0); BG PCO2 69.8 mmHg (35.0-45.0); BG PH 7.471 (7.350-7.450); BG SAMPLE SITE RIGHT RADIAL; BG TIDAL VOLUME(mL) 500 mL; BG TOTAL HEMOGLOBIN 10.4 g/dL (12.0-18.0); BG VENT MODE VENT - A/C; BG VENT RATE 14 set
[2018-11-06] MEDS: IPRATROPIUM/ALBUTEROL 0.5-3(2.5)MG/3ML NEB HHN PRN ×4 (08:28→20:33)
[2018-11-06] MEDS: TAMSULOSIN HCL 0.4MG SR CAPSULE PO SCH (09:00)
[2018-11-06] MEDS: ASPIRIN 81MG TABLET PO SCH (09:00)
[2018-11-06] MEDS: FAMOTIDINE 20MG TABLET PO SCH ×2 (09:00→21:00)
[2018-11-06] MEDS: DOCUSATE SODIUM SUGAR FREE 100MG/10ML UDC NG SCH (09:00)
[2018-11-06] MEDS ORDERED: ACETAMINOPHEN 650MG/20.3ML UDC PO PRN (11:45)
[2018-11-06] MEDS: ACETAMINOPHEN 650MG SUPP PR PRN ×2 (12:08→16:29)
[2018-11-06] MEDS ORDERED: VECURONIUM BROMIDE 10 MG/VIAL IV ONE (14:12)
[2018-11-06] MEDS ORDERED: SODIUM CHLORIDE 0.9% 10ML VIAL ONE (14:13)
[2018-11-06] MEDS: SODIUM CHLORIDE 0.9% 1,000 ML IV SCH ×2 (16:33→23:13)
[2018-11-06] MEDS: DIGOXIN 250MCG TABLET PO SCH (16:39)
[2018-11-06] MEDS ORDERED: PROPOFOL 10MG/ML 100ML 100 ML IV PRN (19:00)
[2018-11-07] VITALS (55 sets, daily range): BP systolic 77–126; BP diastolic 50–83
[2018-11-07] MEDS ORDERED: VANCOMYCIN 1250MG in DEXTROSE 5% WATER 250ML IV NR ×2
[2018-11-07] MEDS: IPRATROPIUM/ALBUTEROL 0.5-3(2.5)MG/3ML NEB HHN PRN ×5 (00:21→16:27)
[2018-11-07] MEDS: CEFEPIME 1,000 MG in DEXTROSE 5% WATER 50 ML IV SCH ×3 (00:30→23:01)
[2018-11-07] MEDS: DILTIAZEM HCL 125 MG in DEXT 5% WATER 100 ML IV PRN (01:41)
[2018-11-07] MEDS: DILTIAZEM HCL 30MG TABLET PO SCH ×3 (06:00→23:01)
[2018-11-07] MEDS: NITROGLYCERIN OINT 1GM/INCH UDPKT TD SCH (06:00)
[2018-11-07] MEDS: METHYLPREDNISOLONE SOD SUCC 40 MG/ML VIAL IV SCH ×3 (06:00→22:59)
[2018-11-07 06:12] LABS: HEMATOCRIT. 32.1 % (42.0-52.0); HEMOGLOBIN. 9.3 g/dL (14.0-18.0); MEAN CORPUSCULAR HEMOGLOBIN 23.6 pg (28.0-32.0); MEAN PLATELET VOLUME 11.2 fl (7.4-10.4); PLATELET 147 x1000/uL (130-400); RED BLOOD CELL COUNT 3.96 mill/uL (4.7-6.1); RED CELL DISTRIBUTION WIDTH 20.8 % (11.6-14.6)
[2018-11-07 06:27] LABS: CHLORIDE 103 mEq/L (98-107)
[2018-11-07] MEDS ORDERED: VANCOMYCIN 1 G PREMIX 200 ML IV SCH (08:00)
[2018-11-07 08:03] LABS: PLATELET ESTIMATE NORMAL
[2018-11-07] MEDS ORDERED: CEFEPIME HCL 1000MG/VIAL INJ IM SCH (09:00)
[2018-11-07] MEDS: TAMSULOSIN HCL 0.4MG SR CAPSULE PO SCH (09:00)
[2018-11-07] MEDS: DOCUSATE SODIUM SUGAR FREE 100MG/10ML UDC NG SCH (11:15)
[2018-11-07] MEDS: FAMOTIDINE 20MG TABLET PO SCH (11:16)
[2018-11-07] MEDS: ACETAMINOPHEN 650MG/20.3ML UDC NG PRN ×2 (11:16→23:33)
[2018-11-07] MEDS: ASPIRIN 81MG TABLET PO SCH (11:16)
[2018-11-07] MEDS ORDERED: DILTIAZEM HCL 125 MG in DEXT 5% WATER 100 ML IV PRN (11:30)
[2018-11-07 12:38] LABS: BG BASE EXCESS 18.5 mmol/L (-2.0-2.0); BG DEOXYHEMOGLOBIN 7.2 % (0.0-5.0); BG FRACTION INSPIRED OXYGEN 75; BG HCO3 ACT 46.7 mmol/L (22.0-26.0); BG METHEMOGLOBIN 0.1 % (0.0-1.5); BG OXYGEN SATURATION 92.8 % (92.0-98.5); BG OXYHEMOGLOBIN 92.7 % (94.0-97.0); BG PH 7.373 (7.350-7.450); BG PO2 68.9 mmHg (75.0-100.0); BG SAMPLE SITE RIGHT RADIAL; BG TIDAL VOLUME(mL) 500 mL; BG TOTAL HEMOGLOBIN 9.3 g/dL (12.0-18.0); BG VENT MODE VENT - A/C; BG VENT RATE 14 set
[2018-11-07] MEDS: ACETAMINOPHEN 650MG SUPP PR PRN (13:10)
[2018-11-07] MEDS: DIGOXIN 250MCG TABLET PO SCH (17:03)
[2018-11-07 17:29] LABS: CLARITY URINE CLOUDY (CLEAR); COLOR URINE YELLOW (YELLOW); KETONES URINE NEGATIVE (NEGATIVE); LEUKOCYTE ESTERASE URINE NEGATIVE (NEGATIVE); NITRITE URINE NEGATIVE (NEGATIVE); OCCULT BLOOD URINE 2+ (NEGATIVE); PH URINE 5.5 (4.5-8.0); PROTEIN URINE 1+ (NEGATIVE); SPECIFIC GRAVITY URINE 1.033 (1.005-1.030)
[2018-11-07] MEDS: SODIUM CHLORIDE 0.9% 1,000 ML IV SCH (20:00)
[2018-11-07] MEDS: IPRATROPIUM/ALBUTEROL 0.5-3(2.5)MG/3ML NEB HHN SCH (20:17)
[2018-11-07] MEDS: PANTOPRAZOLE SODIUM 40 MG/VIAL IV SCH (20:39)
[2018-11-07] MEDS: VANCOMYCIN 1500MG in DEXTROSE 5% WATER 250ML IV SCH (20:39)
[2018-11-08] VITALS (85 sets, daily range): BP systolic 89–123; BP diastolic 46–89
[2018-11-08] MEDS: IPRATROPIUM/ALBUTEROL 0.5-3(2.5)MG/3ML NEB HHN SCH ×7 (00:52→23:43)
[2018-11-08] MEDS: DILTIAZEM HCL 125 MG in DEXT 5% WATER 100 ML IV PRN ×2 (04:47→21:48)
[2018-11-08] MEDS: DILTIAZEM HCL 30MG TABLET PO SCH ×3 (05:32→21:14)
[2018-11-08 05:36] LABS: MEAN CORPUSCULAR HEMOGLOBIN 23.9 pg (28.0-32.0); MEAN CORPUSCULAR VOLUME 82.2 fL (80.0-94.0); MEAN PLATELET VOLUME 10.9 fl (7.4-10.4); PLATELET 108 x1000/uL (130-400); RED BLOOD CELL COUNT 3.78 mill/uL (4.7-6.1); RED CELL DISTRIBUTION WIDTH 20.5 % (11.6-14.6)
[2018-11-08 05:51] LABS: CHLORIDE 106 mEq/L (98-107)
[2018-11-08] MEDS: METHYLPREDNISOLONE SOD SUCC 40 MG/ML VIAL IV SCH ×3 (06:22→21:13)
[2018-11-08 07:04] LABS: PLATELET ESTIMATE SLIGHTLY DECREASED
[2018-11-08] MEDS: DOCUSATE SODIUM SUGAR FREE 100MG/10ML UDC NG SCH (08:46)
[2018-11-08] MEDS: TAMSULOSIN HCL 0.4MG SR CAPSULE PO SCH (08:47)
[2018-11-08] MEDS: ASPIRIN 81MG TABLET PO SCH (08:47)
[2018-11-08] MEDS: PANTOPRAZOLE SODIUM 40 MG/VIAL IV SCH ×2 (09:30→21:12)
[2018-11-08] MEDS ORDERED: BISACODYL 10MG SUPP PR NR (09:30)
[2018-11-08 10:37] LABS: BG BASE EXCESS 18.9 mmol/L (-2.0-2.0); BG CARBOXYHEMOGLOBIN 0.1 % (0.5-1.5); BG DEOXYHEMOGLOBIN 6.5 % (0.0-5.0); BG FRACTION INSPIRED OXYGEN 75; BG HCO3 ACT 46.5 mmol/L (22.0-26.0); BG METHEMOGLOBIN 0.4 % (0.0-1.5); BG OXYGEN SATURATION 93.5 % (92.0-98.5); BG PCO2 74.3 mmHg (35.0-45.0); BG PH 7.414 (7.350-7.450); BG SAMPLE SITE RIGHT BRACHIAL; BG TIDAL VOLUME(mL) 550 mL; BG VENT MODE VENT - A/C; BG VENT RATE 16 set
[2018-11-08] MEDS: CEFEPIME 1,000 MG in DEXTROSE 5% WATER 50 ML IV SCH ×2 (11:18→23:53)
[2018-11-08] MEDS: LORAZEPAM 2MG/ML CPJ IV PRN (11:19)
[2018-11-08] MEDS: VANCOMYCIN 1500MG in DEXTROSE 5% WATER 250ML IV SCH ×2 (12:01→21:12)
[2018-11-08] MEDS: SODIUM CHLORIDE 0.9% 1,000 ML IV SCH ×2 (12:01→14:55)
[2018-11-08] MEDS ORDERED: MIDAZOLAM HCL 5 MG/5 ML VIAL ONE (13:36)
[2018-11-08] MEDS ORDERED: FENTANYL CITRATE/PF 50MCG/ML 2ML VIAL ONE (13:36)
[2018-11-08] MEDS ORDERED: SIMETHICONE 40 MG/0.6 ML 30ML ONE (13:56)
[2018-11-08] MEDS ORDERED: SODIUM CHLORIDE 0.9% 10ML VIAL ONE (13:56)
[2018-11-08] MEDS ORDERED: MIDAZOLAM HCL 5 MG/5 ML VIAL IV PRN (14:24)
[2018-11-08] MEDS: ACETAMINOPHEN 650MG/20.3ML UDC NG PRN ×2 (16:15→21:13)
[2018-11-08] MEDS: DIGOXIN 250MCG TABLET PO SCH (17:18)
[2018-11-09] VITALS (62 sets, daily range): BP systolic 80–138; BP diastolic 48–94
[2018-11-09] MEDS: ACETAMINOPHEN 650MG/20.3ML UDC NG PRN ×3 (03:06→19:41)
[2018-11-09] MEDS: IPRATROPIUM/ALBUTEROL 0.5-3(2.5)MG/3ML NEB HHN SCH ×6 (04:01→20:25)
[2018-11-09] MEDS: METHYLPREDNISOLONE SOD SUCC 40 MG/ML VIAL IV SCH ×3 (06:07→21:24)
[2018-11-09] MEDS: DILTIAZEM HCL 30MG TABLET PO SCH ×5 (06:08→23:34)
[2018-11-09 06:25] LABS: HEMATOCRIT. 28.8 % (42.0-52.0); HEMOGLOBIN. 8.4 g/dL (14.0-18.0); MEAN CORPUSCULAR HEMOGLOBIN 23.8 pg (28.0-32.0); MEAN CORPUSCULAR VOLUME 81.6 fL (80.0-94.0); MEAN PLATELET VOLUME 10.7 fl (7.4-10.4); PLATELET 83 x1000/uL (130-400); RED BLOOD CELL COUNT 3.53 mill/uL (4.7-6.1); RED CELL DISTRIBUTION WIDTH 20.4 % (11.6-14.6)
[2018-11-09] MEDS: MORPHINE SULFATE 4 MG/ML CPJ (NOT FOR IM USE) IV PRN ×5 (07:01→19:42)
[2018-11-09 07:15] LABS: CHLORIDE 107 mEq/L (98-107)
[2018-11-09 07:26] LABS: PLATELET ESTIMATE DECREASED
[2018-11-09] MEDS: PANTOPRAZOLE SODIUM 40 MG/VIAL IV SCH ×2 (08:40→21:25)
[2018-11-09] MEDS: DOCUSATE SODIUM SUGAR FREE 100MG/10ML UDC NG SCH (08:40)
[2018-11-09] MEDS: VANCOMYCIN 1500MG in DEXTROSE 5% WATER 250ML IV SCH (08:44)
[2018-11-09] MEDS: TAMSULOSIN HCL 0.4MG SR CAPSULE PO SCH (08:47)
[2018-11-09 09:13] LABS: BG FRACTION INSPIRED OXYGEN 75; BG SAMPLE SITE RIGHT BRACHIAL; BG VENT MODE VENT - A/C
[2018-11-09 10:24] LABS: BG VENT RATE 16 set
[2018-11-09 10:25] LABS: BG TIDAL VOLUME(mL) 550 mL
[2018-11-09 10:26] LABS: BG PH 7.384 (7.350-7.450)
[2018-11-09 10:27] LABS: BG PCO2 71.5 mmHg (35.0-45.0); BG PO2 87.6 mmHg (75.0-100.0)
[2018-11-09 10:28] LABS: BG HCO3 ACT 41.7 mmol/L (22.0-26.0)
[2018-11-09 10:29] LABS: BG BASE EXCESS 14.4 mmol/L (-2.0-2.0)
[2018-11-09 10:30] LABS: BG TOTAL HEMOGLOBIN 9.6 g/dL (12.0-18.0)
[2018-11-09 10:31] LABS: BG OXYGEN SATURATION 96.6 % (92.0-98.5)
[2018-11-09 10:32] LABS: BG CARBOXYHEMOGLOBIN 0.1 % (0.5-1.5); BG OXYHEMOGLOBIN 96.5 % (94.0-97.0)
[2018-11-09 10:34] LABS: BG DEOXYHEMOGLOBIN 3.4 % (0.0-5.0)
[2018-11-09] MEDS: CEFEPIME 1,000 MG in DEXTROSE 5% WATER 50 ML IV SCH ×2 (12:17→21:41)
[2018-11-09] MEDS ORDERED: VANCOMYCIN 1 G PREMIX 200 ML IV SCH (18:00)
[2018-11-09] MEDS: DIGOXIN 250MCG TABLET PO SCH (18:45)
[2018-11-09] MEDS: DILTIAZEM HCL 125 MG in DEXT 5% WATER 100 ML IV PRN (21:43)
[2018-11-10] VITALS (62 sets, daily range): BP systolic 65–132; BP diastolic 16–99
[2018-11-10] MEDS: IPRATROPIUM/ALBUTEROL 0.5-3(2.5)MG/3ML NEB HHN SCH ×4 (00:01→13:55)
[2018-11-10] MEDS: MORPHINE SULFATE 4 MG/ML CPJ (NOT FOR IM USE) IV PRN ×6 (00:27→22:32)
[2018-11-10] MEDS: DILTIAZEM HCL 30MG TABLET PO SCH ×6 (03:05→23:49)
[2018-11-10] MEDS: METHYLPREDNISOLONE SOD SUCC 40 MG/ML VIAL IV SCH ×3 (05:00→21:35)
[2018-11-10 05:38] LABS: HEMATOCRIT. 28.8 % (42.0-52.0); HEMOGLOBIN. 8.3 g/dL (14.0-18.0); MEAN CORPUSCULAR HEMOGLOBIN 23.7 pg (28.0-32.0); MEAN CORPUSCULAR VOLUME 82.1 fL (80.0-94.0); PLATELET 77 x1000/uL (130-400); RED BLOOD CELL COUNT 3.51 mill/uL (4.7-6.1); RED CELL DISTRIBUTION WIDTH 20.4 % (11.6-14.6)
[2018-11-10 05:39] LABS: CHLORIDE 105 mEq/L (98-107)
[2018-11-10] MEDS ORDERED: DEXTROSE 50% WATER 50ML SYRINGE IV PRN (06:45)
[2018-11-10] MEDS: BLOOD SUGAR DIAGNOSTIC STRIP TEST SCH ×3 (07:02→18:05)
[2018-11-10] MEDS: INSULIN LISPRO 100 UNITS/ML SUBCUT SCH ×3 (07:07→18:00)
[2018-11-10] MEDS: PANTOPRAZOLE SODIUM 40 MG/VIAL IV SCH ×2 (09:18→21:35)
[2018-11-10] MEDS: TAMSULOSIN HCL 0.4MG SR CAPSULE PO SCH (09:19)
[2018-11-10] MEDS: DOCUSATE SODIUM SUGAR FREE 100MG/10ML UDC NG SCH (09:19)
[2018-11-10 10:10] LABS: PLATELET ESTIMATE DECREASED
[2018-11-10 10:35] LABS: BG BASE EXCESS 16.9 mmol/L (-2.0-2.0); BG DEOXYHEMOGLOBIN 4.9 % (0.0-5.0); BG HCO3 ACT 43.9 mmol/L (22.0-26.0); BG OXYGEN SATURATION 95.1 % (92.0-98.5); BG OXYHEMOGLOBIN 95.1 % (94.0-97.0); BG PCO2 70.8 mmHg (35.0-45.0); BG PO2 75.4 mmHg (75.0-100.0); BG SAMPLE SITE RIGHT RADIAL; BG TIDAL VOLUME(mL) 550 mL; BG TOTAL HEMOGLOBIN 8.8 g/dL (12.0-18.0); BG VENT MODE VENT - A/C; BG VENT RATE 18 set
[2018-11-10] MEDS: CEFEPIME 1,000 MG in DEXTROSE 5% WATER 50 ML IV SCH ×2 (11:55→22:30)
[2018-11-10] MEDS ORDERED: ENOXAPARIN 30MG/0.3ML SYR SUBCUT SCH (15:30)
[2018-11-10] MEDS: IPRATROPIUM/ALBUTEROL 0.5-3(2.5)MG/3ML NEB HHN PRN ×2 (16:31→20:05)
[2018-11-10] MEDS: DIGOXIN 250MCG TABLET PO SCH (18:00)
[2018-11-10] MEDS: BISACODYL 5MG TABLET PO PRN (19:32)
[2018-11-10] MEDS: VERAPAMIL HCL 40MG TABLET PO SCH (21:35)
[2018-11-10] MEDS: DILTIAZEM HCL 125 MG in DEXT 5% WATER 100 ML IV PRN (22:31)
[2018-11-11] VITALS (64 sets, daily range): BP systolic 85–130; BP diastolic 32–80
[2018-11-11] MEDS: BLOOD SUGAR DIAGNOSTIC STRIP TEST SCH ×5 (00:09→23:41)
[2018-11-11] MEDS: IPRATROPIUM/ALBUTEROL 0.5-3(2.5)MG/3ML NEB HHN PRN ×6 (00:12→20:47)
[2018-11-11] MEDS: INSULIN LISPRO 100 UNITS/ML SUBCUT SCH ×5 (00:12→23:48)
[2018-11-11] MEDS: MORPHINE SULFATE 4 MG/ML CPJ (NOT FOR IM USE) IV PRN ×6 (02:32→22:38)
[2018-11-11] MEDS: DILTIAZEM HCL 30MG TABLET PO SCH ×6 (04:00→23:47)
[2018-11-11] MEDS: VERAPAMIL HCL 40MG TABLET PO SCH ×3 (05:18→22:37)
[2018-11-11] MEDS: METHYLPREDNISOLONE SOD SUCC 40 MG/ML VIAL IV SCH ×3 (05:29→22:37)
[2018-11-11 05:46] LABS: HEMATOCRIT. 25.8 % (42.0-52.0); HEMOGLOBIN. 7.6 g/dL (14.0-18.0); MEAN CORPUSCULAR HEMOGLOBIN 23.9 pg (28.0-32.0); MEAN CORPUSCULAR VOLUME 81.6 fL (80.0-94.0); PLATELET 62 x1000/uL (130-400); RED BLOOD CELL COUNT 3.16 mill/uL (4.7-6.1); RED CELL DISTRIBUTION WIDTH 20.1 % (11.6-14.6)
[2018-11-11 06:34] LABS: CHLORIDE 103 mEq/L (98-107)
[2018-11-11] MEDS: PANTOPRAZOLE SODIUM 40 MG/VIAL IV SCH ×2 (09:05→20:20)
[2018-11-11] MEDS: DOCUSATE SODIUM SUGAR FREE 100MG/10ML UDC NG SCH (09:05)
[2018-11-11] MEDS: TAMSULOSIN HCL 0.4MG SR CAPSULE PO SCH (09:06)
[2018-11-11] MEDS: CEFEPIME 1,000 MG in DEXTROSE 5% WATER 50 ML IV SCH ×2 (11:00→22:45)
[2018-11-11 11:46] LABS: PLATELET ESTIMATE MARKEDLY DECREASED
[2018-11-11 16:44] LABS: TOTAL IRON BINDING CAPACITY 118 ug/dL (250-450)
[2018-11-11 17:15] LABS: VITAMIN B12 SERUM 500 pg/mL (211-911)
[2018-11-11] MEDS: DIGOXIN 250MCG TABLET PO SCH (18:41)
[2018-11-11] MEDS: BISACODYL 5MG TABLET PO PRN (20:20)
[2018-11-12] VITALS (52 sets, daily range): BP systolic 81–126; BP diastolic 35–92
[2018-11-12] MEDS: IPRATROPIUM/ALBUTEROL 0.5-3(2.5)MG/3ML NEB HHN PRN ×5 (00:02→20:38)
[2018-11-12] MEDS: MORPHINE SULFATE 4 MG/ML CPJ (NOT FOR IM USE) IV PRN ×4 (02:48→18:16)
[2018-11-12] MEDS: DILTIAZEM HCL 30MG TABLET PO SCH (04:19)
[2018-11-12] MEDS: VERAPAMIL HCL 40MG TABLET PO SCH ×4 (05:35→23:11)
[2018-11-12 05:39] LABS: HEMATOCRIT. 26.7 % (42.0-52.0); HEMOGLOBIN. 7.9 g/dL (14.0-18.0); MEAN CORPUSCULAR HEMOGLOBIN 24.1 pg (28.0-32.0); MEAN CORPUSCULAR VOLUME 81.6 fL (80.0-94.0); MEAN PLATELET VOLUME 11.8 fl (7.4-10.4); PLATELET 57 x1000/uL (130-400); RED BLOOD CELL COUNT 3.27 mill/uL (4.7-6.1); RED CELL DISTRIBUTION WIDTH 20.4 % (11.6-14.6)
[2018-11-12] MEDS: BLOOD SUGAR DIAGNOSTIC STRIP TEST SCH ×3 (05:42→17:42)
[2018-11-12] MEDS: INSULIN LISPRO 100 UNITS/ML SUBCUT SCH ×4 (05:46→18:52)
[2018-11-12] MEDS: METHYLPREDNISOLONE SOD SUCC 40 MG/ML VIAL IV SCH ×3 (05:46→22:12)
[2018-11-12 06:15] LABS: CHLORIDE 101 mEq/L (98-107)
[2018-11-12] MEDS: PANTOPRAZOLE SODIUM 40 MG/VIAL IV SCH ×2 (08:16→22:12)
[2018-11-12] MEDS: DOCUSATE SODIUM SUGAR FREE 100MG/10ML UDC NG SCH (08:16)
[2018-11-12] MEDS: TAMSULOSIN HCL 0.4MG SR CAPSULE PO SCH (08:17)
[2018-11-12 10:28] LABS: PLATELET ESTIMATE MARKEDLY DECREASED
[2018-11-12] MEDS: CEFEPIME 1,000 MG in DEXTROSE 5% WATER 50 ML IV SCH ×2 (11:23→23:11)
[2018-11-12] MEDS: LORAZEPAM 2MG/ML CPJ IV PRN (12:35)
[2018-11-12 12:39] LABS: BG BASE EXCESS 12.7 mmol/L (-2.0-2.0); BG CARBOXYHEMOGLOBIN 0.3 % (0.5-1.5); BG DEOXYHEMOGLOBIN 7.3 % (0.0-5.0); BG FRACTION INSPIRED OXYGEN 75; BG HCO3 ACT 40.1 mmol/L (22.0-26.0); BG METHEMOGLOBIN 0.1 % (0.0-1.5); BG OXYGEN SATURATION 92.7 % (92.0-98.5); BG OXYHEMOGLOBIN 92.3 % (94.0-97.0); BG PCO2 74.2 mmHg (35.0-45.0); BG PH 7.351 (7.350-7.450); BG PO2 68.7 mmHg (75.0-100.0); BG SAMPLE SITE LEFT RADIAL; BG TIDAL VOLUME(mL) 550 mL; BG TOTAL HEMOGLOBIN 8.4 g/dL (12.0-18.0); BG VENT MODE VENT - A/C; BG VENT RATE 18 set
[2018-11-12] MEDS: DIGOXIN 250MCG TABLET PO SCH (17:48)
[2018-11-12] MEDS: ACETAMINOPHEN 650MG/20.3ML UDC NG PRN (19:00)
[2018-11-13] VITALS (44 sets, daily range): BP systolic 88–145; BP diastolic 47–99
[2018-11-13] MEDS: INSULIN LISPRO 100 UNITS/ML SUBCUT SCH ×5 (00:10→23:33)
[2018-11-13] MEDS: BLOOD SUGAR DIAGNOSTIC STRIP TEST SCH ×4 (00:11→17:14)
[2018-11-13] MEDS: MORPHINE SULFATE 4 MG/ML CPJ (NOT FOR IM USE) IV PRN ×6 (00:41→21:32)
[2018-11-13] MEDS: IPRATROPIUM/ALBUTEROL 0.5-3(2.5)MG/3ML NEB HHN PRN ×5 (04:26→21:03)
[2018-11-13] MEDS: VERAPAMIL HCL 40MG TABLET PO SCH ×4 (06:42→23:33)
[2018-11-13] MEDS: METHYLPREDNISOLONE SOD SUCC 40 MG/ML VIAL IV SCH ×3 (06:43→21:29)
[2018-11-13] MEDS: PANTOPRAZOLE SODIUM 40 MG/VIAL IV SCH ×2 (08:56→21:29)
[2018-11-13] MEDS: DOCUSATE SODIUM SUGAR FREE 100MG/10ML UDC NG SCH (08:56)
[2018-11-13] MEDS: TAMSULOSIN HCL 0.4MG SR CAPSULE PO SCH (08:57)
[2018-11-13 09:58] LABS: HEMATOCRIT. 26.3 % (42.0-52.0); HEMOGLOBIN. 7.8 g/dL (14.0-18.0); MEAN CORPUSCULAR HEMOGLOBIN 24.1 pg (28.0-32.0); MEAN CORPUSCULAR VOLUME 81.3 fL (80.0-94.0); MEAN PLATELET VOLUME 12.4 fl (7.4-10.4); RED BLOOD CELL COUNT 3.24 mill/uL (4.7-6.1); RED CELL DISTRIBUTION WIDTH 20.3 % (11.6-14.6)
[2018-11-13 10:02] LABS: CHLORIDE 98 mEq/L (98-107)
[2018-11-13 10:26] LABS: PLATELET 50 x1000/uL (130-400)
[2018-11-13] MEDS: DILTIAZEM HCL 125 MG in DEXT 5% WATER 100 ML IV PRN (11:32)
[2018-11-13] MEDS: CEFEPIME 1,000 MG in DEXTROSE 5% WATER 50 ML IV SCH ×2 (11:32→23:33)
[2018-11-13] MEDS ORDERED: DIGOXIN 500MCG/2ML AMP IV SCH (12:00)
[2018-11-13 13:09] LABS: HEPATITIS B SURFACE ANTIGEN NEGATIVE
[2018-11-13 13:39] LABS: HEPATITIS A AB IGM NEGATIVE (NEGATIVE)
[2018-11-13 17:05] LABS: PLATELET ESTIMATE MARKEDLY DECREASED
[2018-11-13] MEDS: DIGOXIN 250MCG TABLET PO SCH (17:12)
[2018-11-14] VITALS (59 sets, daily range): BP systolic 76–133; BP diastolic 50–100
[2018-11-14] MEDS: BLOOD SUGAR DIAGNOSTIC STRIP TEST SCH ×4 (00:22→17:42)
[2018-11-14] MEDS: IPRATROPIUM/ALBUTEROL 0.5-3(2.5)MG/3ML NEB HHN PRN ×3 (00:45→08:48)
[2018-11-14] MEDS: MORPHINE SULFATE 4 MG/ML CPJ (NOT FOR IM USE) IV PRN ×3 (03:33→14:39)
[2018-11-14] MEDS: METHYLPREDNISOLONE SOD SUCC 40 MG/ML VIAL IV SCH ×3 (05:28→22:21)
[2018-11-14] MEDS: VERAPAMIL HCL 40MG TABLET PO SCH ×3 (05:30→17:44)
[2018-11-14] MEDS: INSULIN LISPRO 100 UNITS/ML SUBCUT SCH ×3 (05:31→17:35)
[2018-11-14 06:03] LABS: HEMOGLOBIN. 7.9 g/dL (14.0-18.0); MEAN CORPUSCULAR HEMOGLOBIN 24.2 pg (28.0-32.0); MEAN CORPUSCULAR VOLUME 80.2 fL (80.0-94.0); MEAN PLATELET VOLUME 12.8 fl (7.4-10.4); RED BLOOD CELL COUNT 3.24 mill/uL (4.7-6.1); RED CELL DISTRIBUTION WIDTH 20.2 % (11.6-14.6)
[2018-11-14 06:11] LABS: CHLORIDE 95 mEq/L (98-107)
[2018-11-14 06:38] LABS: DIGOXIN 1.4 ng/mL (0.9-2.0)
[2018-11-14] MEDS: DOCUSATE SODIUM SUGAR FREE 100MG/10ML UDC NG SCH (08:18)
[2018-11-14] MEDS: TAMSULOSIN HCL 0.4MG SR CAPSULE PO SCH (08:18)
[2018-11-14] MEDS: PANTOPRAZOLE SODIUM 40 MG/VIAL IV SCH ×3 (08:19→22:22)
[2018-11-14 11:49] LABS: PLATELET ESTIMATE MARKEDLY DECREASED
[2018-11-14 11:50] LABS: PLATELET 47 x1000/uL (130-400)
[2018-11-14] MEDS ORDERED: SODIUM POLYSTYRENE SULFONATE 15 G/60 ML BOT PO NR (12:00)
[2018-11-14 13:37] LABS: CREATINE KINASE 198 IU/L (39-308)
[2018-11-14] MEDS: IPRATROPIUM BROMIDE (0.02%) 0.5MG/2.5ML NEB HHN PRN ×2 (17:02→20:06)
[2018-11-14] MEDS: BUDESONIDE 0.5MG/2ML NEB HHN SCH ×2 (17:04→20:06)
[2018-11-14] MEDS: CLONAZEPAM 1MG TABLET PO SCH (17:34)
[2018-11-14] MEDS: DIGOXIN 250MCG TABLET PO SCH (17:34)
[2018-11-14] MEDS ORDERED: MORPHINE SULFATE 4 MG/ML CPJ (NOT FOR IM USE) IV STA (21:34)
[2018-11-14] MEDS ORDERED: MORPHINE SULFATE 4 MG/ML CPJ (NOT FOR IM USE) IV NR (22:00)
[2018-11-14] MEDS: ACETAMINOPHEN 650MG/20.3ML UDC NG PRN (22:21)
[2018-11-15] VITALS (102 sets, daily range): BP systolic 64–117; BP diastolic 41–69
[2018-11-15] MEDS: IPRATROPIUM BROMIDE (0.02%) 0.5MG/2.5ML NEB HHN PRN ×6 (00:30→20:14)
[2018-11-15] MEDS ORDERED: MORPHINE SULFATE 4 MG/ML CPJ (NOT FOR IM USE) IV PRN (05:00)
[2018-11-15] MEDS ORDERED: HYDROCODONE/ACETAMINOPHEN 5/325MG TABLET PO PRN (05:00)
[2018-11-15] MEDS: METHYLPREDNISOLONE SOD SUCC 40 MG/ML VIAL IV SCH ×3 (06:12→21:15)
[2018-11-15] MEDS: VERAPAMIL HCL 40MG TABLET PO SCH ×5 (06:16→23:27)
[2018-11-15 06:18] LABS: HEMATOCRIT. 27.3 % (42.0-52.0); HEMOGLOBIN. 8.1 g/dL (14.0-18.0); MEAN CORPUSCULAR HEMOGLOBIN 23.7 pg (28.0-32.0); MEAN CORPUSCULAR VOLUME 79.7 fL (80.0-94.0); MEAN PLATELET VOLUME 11.9 fl (7.4-10.4); RED BLOOD CELL COUNT 3.43 mill/uL (4.7-6.1)
[2018-11-15 06:26] LABS: CHLORIDE 93 mEq/L (98-107)
[2018-11-15 06:35] LABS: PLATELET 30 x1000/uL (130-400)
[2018-11-15] MEDS: INSULIN LISPRO 100 UNITS/ML SUBCUT SCH ×5 (06:38→23:27)
[2018-11-15] MEDS: BLOOD SUGAR DIAGNOSTIC STRIP TEST SCH ×5 (06:43→23:21)
[2018-11-15 07:39] LABS: PLATELET ESTIMATE MARKEDLY DECREASED
[2018-11-15 08:24] LABS: BG CARBOXYHEMOGLOBIN 0.3 % (0.5-1.5); BG DEOXYHEMOGLOBIN 4.3 % (0.0-5.0); BG FRACTION INSPIRED OXYGEN 100; BG HCO3 ACT 45.5 mmol/L (22.0-26.0); BG METHEMOGLOBIN 0.3 % (0.0-1.5); BG OXYGEN SATURATION 95.7 % (92.0-98.5); BG OXYHEMOGLOBIN 95.1 % (94.0-97.0); BG PCO2 84.7 mmHg (35.0-45.0); BG PH 7.348 (7.350-7.450); BG PO2 85.9 mmHg (75.0-100.0); BG SAMPLE SITE LEFT BRACHIAL; BG TIDAL VOLUME(mL) 550 mL; BG TOTAL HEMOGLOBIN 9.4 g/dL (12.0-18.0); BG VENT MODE VENT - A/C; BG VENT RATE 18 set
[2018-11-15] MEDS: BUDESONIDE 0.5MG/2ML NEB HHN SCH ×2 (08:30→20:15)
[2018-11-15] MEDS: TAMSULOSIN HCL 0.4MG SR CAPSULE PO SCH (08:34)
[2018-11-15] MEDS: CLONAZEPAM 1MG TABLET PO SCH ×3 (08:34→17:30)
[2018-11-15] MEDS: DOCUSATE SODIUM SUGAR FREE 100MG/10ML UDC NG SCH (09:00)
[2018-11-15] MEDS ORDERED: SODIUM CHLORIDE 0.9% 1,000 ML IV NR (11:50)
[2018-11-15] MEDS: DIGOXIN 250MCG TABLET PO SCH (17:30)
[2018-11-15] MEDS: ACETAMINOPHEN 650MG/20.3ML UDC NG PRN (17:30)
[2018-11-15] MEDS ORDERED: VANCOMYCIN 1,750 MG in DEXT 5% WATER 250 ML IV NR (18:00)
[2018-11-15] MEDS ORDERED: CEFEPIME HCL 1000MG/VIAL INJ IM SCH (21:00)
[2018-11-15] MEDS: PANTOPRAZOLE SODIUM 40 MG/VIAL IV SCH (21:15)
[2018-11-15] MEDS: CEFEPIME 1,000 MG in DEXTROSE 5% WATER 50 ML IV SCH (21:15)
[2018-11-16] VITALS (103 sets, daily range): BP systolic 62–138; BP diastolic 16–81
[2018-11-16] MEDS: IPRATROPIUM BROMIDE (0.02%) 0.5MG/2.5ML NEB HHN PRN ×5 (00:27→20:57)
[2018-11-16 02:34] LABS: HEMOGLOBIN. 7.7 g/dL (14.0-18.0); MEAN CORPUSCULAR HEMOGLOBIN 23.9 pg (28.0-32.0); MEAN CORPUSCULAR VOLUME 81.1 fL (80.0-94.0); MEAN PLATELET VOLUME 9.7 fl (7.4-10.4); PLATELET 72 x1000/uL (130-400); RED CELL DISTRIBUTION WIDTH 20.1 % (11.6-14.6)
[2018-11-16 04:46] LABS: BG BASE EXCESS 16.1 mmol/L (-2.0-2.0); BG CARBOXYHEMOGLOBIN 0.2 % (0.5-1.5); BG FRACTION INSPIRED OXYGEN 100; BG HCO3 ACT 46.8 mmol/L (22.0-26.0); BG METHEMOGLOBIN 0.3 % (0.0-1.5); BG OXYGEN SATURATION 85.9 % (92.0-98.5); BG OXYHEMOGLOBIN 85.5 % (94.0-97.0); BG PCO2 118.4 mmHg (35.0-45.0); BG PH 7.215 (7.350-7.450); BG PO2 62.8 mmHg (75.0-100.0); BG SAMPLE SITE RIGHT RADIAL; BG TIDAL VOLUME(mL) 550 mL; BG TOTAL HEMOGLOBIN 8.6 g/dL (12.0-18.0); BG VENT MODE VENT - A/C; BG VENT RATE 18 set
[2018-11-16] MEDS ORDERED: NOREPINEPHRINE 4 MG in DEXT 5% WATER 246 ML IV PRN (05:30)
[2018-11-16] MEDS: VERAPAMIL HCL 40MG TABLET PO SCH ×4 (05:56→23:46)
[2018-11-16] MEDS: BLOOD SUGAR DIAGNOSTIC STRIP TEST SCH ×4 (05:57→23:47)
[2018-11-16] MEDS: METHYLPREDNISOLONE SOD SUCC 40 MG/ML VIAL IV SCH ×3 (05:57→21:14)
[2018-11-16] MEDS ORDERED: VANCOMYCIN 1500MG in DEXTROSE 5% WATER 250ML IV SCH (06:00)
[2018-11-16] MEDS: INSULIN LISPRO 100 UNITS/ML SUBCUT SCH ×4 (06:17→23:47)
[2018-11-16 06:25] LABS: BG BASE EXCESS 7.5 mmol/L (-2.0-2.0); BG CARBOXYHEMOGLOBIN 0.3 % (0.5-1.5); BG DEOXYHEMOGLOBIN 14.3 % (0.0-5.0); BG FRACTION INSPIRED OXYGEN 100; BG HCO3 ACT 36.4 mmol/L (22.0-26.0); BG OXYGEN SATURATION 85.7 % (92.0-98.5); BG OXYHEMOGLOBIN 85.4 % (94.0-97.0); BG PCO2 86.3 mmHg (35.0-45.0); BG PH 7.243 (7.350-7.450); BG PO2 59.6 mmHg (75.0-100.0); BG SAMPLE SITE RIGHT RADIAL; BG TIDAL VOLUME(mL) 600 mL; BG TOTAL HEMOGLOBIN 8.4 g/dL (12.0-18.0); BG VENT MODE VENT - A/C; BG VENT RATE 22 set
[2018-11-16 07:02] LABS: CHLORIDE 95 mEq/L (98-107)
[2018-11-16] MEDS: BUDESONIDE 0.5MG/2ML NEB HHN SCH ×3 (07:25→20:57)
[2018-11-16 07:45] LABS: HEMATOCRIT. 26.1 % (42.0-52.0); HEMOGLOBIN. 7.7 g/dL (14.0-18.0); MEAN CORPUSCULAR HEMOGLOBIN 24.1 pg (28.0-32.0); MEAN CORPUSCULAR VOLUME 81.4 fL (80.0-94.0); MEAN PLATELET VOLUME 10.3 fl (7.4-10.4); RED BLOOD CELL COUNT 3.21 mill/uL (4.7-6.1)
[2018-11-16 08:02] LABS: PLATELET 42 x1000/uL (130-400)
[2018-11-16] MEDS: DOCUSATE SODIUM SUGAR FREE 100MG/10ML UDC NG SCH (09:00)
[2018-11-16] MEDS: CLONAZEPAM 1MG TABLET PO SCH ×3 (09:00→17:00)
[2018-11-16] MEDS: TAMSULOSIN HCL 0.4MG SR CAPSULE PO SCH (09:00)
[2018-11-16 10:33] LABS: PLATELET ESTIMATE MARKEDLY DECREASED
[2018-11-16] MEDS: PANTOPRAZOLE SODIUM 40 MG/VIAL IV SCH ×2 (11:14→20:21)
[2018-11-16] MEDS: CEFEPIME 1,000 MG in DEXTROSE 5% WATER 50 ML IV SCH ×2 (11:14→20:21)
[2018-11-16] MEDS ORDERED: FUROSEMIDE 40MG/4ML VIAL IVP NR (11:22)
[2018-11-16] MEDS: VANCOMYCIN 1 G PREMIX 200 ML IV SCH ×2 (13:51→21:14)
[2018-11-16] MEDS ORDERED: SODIUM BICARBONATE 4% (2.4MEQ) 5ML VIAL IV ONE (14:22)
[2018-11-16] MEDS ORDERED: LIDOCAINE HCL 1% 20ML VIAL (Pyxis) INJ ONE (14:22)
[2018-11-16] MEDS: NOREPINEPHRINE 16 MG in DEXT 5% WATER 484 ML IV PRN ×2 (15:00→16:15)
[2018-11-16] MEDS: DIGOXIN 250MCG TABLET PO SCH ×2 (17:54→19:35)
[2018-11-16] MEDS: PHENYLEPHRINE 40 MG in DEXT 5% WATER 500 ML IV SCH (20:00)
[2018-11-16 20:46] LABS: BG BASE EXCESS 0.4 mmol/L (-2.0-2.0); BG CARBOXYHEMOGLOBIN 0.4 % (0.5-1.5); BG DEOXYHEMOGLOBIN 19.8 % (0.0-5.0); BG FRACTION INSPIRED OXYGEN 100; BG HCO3 ACT 29.2 mmol/L (22.0-26.0); BG METHEMOGLOBIN 0.3 % (0.0-1.5); BG OXYGEN SATURATION 80.1 % (92.0-98.5); BG OXYHEMOGLOBIN 79.5 % (94.0-97.0); BG PCO2 76.7 mmHg (35.0-45.0); BG PH 7.198 (7.350-7.450); BG PO2 53.4 mmHg (75.0-100.0); BG SAMPLE SITE RIGHT RADIAL; BG TIDAL VOLUME(mL) 600 mL; BG VENT MODE VENT - A/C; BG VENT RATE 22 set
[2018-11-16 20:48] LABS: PLATELET ESTIMATE DECREASED
[2018-11-17] VITALS (35 sets, daily range): BP systolic 51–142; BP diastolic 13–62
[2018-11-17] MEDS: IPRATROPIUM BROMIDE (0.02%) 0.5MG/2.5ML NEB HHN PRN (01:43)
[2018-11-17] MEDS: NOREPINEPHRINE 16 MG in DEXT 5% WATER 484 ML IV PRN (02:23)
[2018-11-17] MEDS: PHENYLEPHRINE 40 MG in DEXT 5% WATER 500 ML IV SCH ×2 (03:11→06:58)
[2018-11-17 05:31] LABS: HEMATOCRIT. 25.4 % (42.0-52.0); HEMOGLOBIN. 7.3 g/dL (14.0-18.0); MEAN CORPUSCULAR HEMOGLOBIN 24.6 pg (28.0-32.0); MEAN CORPUSCULAR VOLUME 85.8 fL (80.0-94.0); RED BLOOD CELL COUNT 2.96 mill/uL (4.7-6.1); RED CELL DISTRIBUTION WIDTH 20.1 % (11.6-14.6)
[2018-11-17] MEDS: VERAPAMIL HCL 40MG TABLET PO SCH (06:00)
[2018-11-17] MEDS: INSULIN LISPRO 100 UNITS/ML SUBCUT SCH (06:00)
[2018-11-17] MEDS: BLOOD SUGAR DIAGNOSTIC STRIP TEST SCH (06:04)
[2018-11-17] MEDS: VANCOMYCIN 1 G PREMIX 200 ML IV SCH (06:04)
[2018-11-17] MEDS: METHYLPREDNISOLONE SOD SUCC 40 MG/ML VIAL IV SCH (06:04)
[2018-11-17 06:09] LABS: PLATELET 12 x1000/uL (130-400)
[2018-11-17 06:21] LABS: VANCOMYCIN TROUGH 47.6 ug/mL (5.0-10.0)
[2018-11-17 06:33] LABS: DIGOXIN 2.1 ng/mL (0.9-2.0)
[2018-11-17] MEDS ORDERED: DOPAMINE 800MG PREMIX (DOUBLE) 250 ML IV PRN (07:56)
[2018-11-17] MEDS ORDERED: SODIUM POLYSTYRENE SULFONATE 15 G/60 ML BOT PO NR (08:30)
[2018-11-17] MEDS ORDERED: EPINEPHRINE 0.1MG/ML (1:10,000) 10ML SYR ONE (13:34)
[2018-11-17 13:54] LABS: PLATELET ESTIMATE MARKEDLY DECREASED
== END 2018-11-17 08:03 | disposition expired | DRG 4 ==
LOC: ER 15:45 → 8WST 18:42 → EDBEDREQ 18:43 → ENRESERV 22:41 → MICUSO 10-28 19:00 → MICUNO 10-29 08:01
PROVIDERS: ADMIT Internal Medicine; ATTEND Internal Medicine
PROC: 5A09357 Assistance with Respiratory Ventilation, Less than 24 Consecutive Hours, Continuous Positive Airway Pressure (ICD-10-PCS; 2018-10-25)
PROC: 5A09357 Assistance with Respiratory Ventilation, Less than 24 Consecutive Hours, Continuous Positive Airway Pressure (ICD-10-PCS; 2018-10-26)
PROC: 5A09457 Assistance with Respiratory Ventilation, 24-96 Consecutive Hours, Continuous Positive Airway Pressure (ICD-10-PCS; 2018-10-28)
PROC: 5A09457 Assistance with Respiratory Ventilation, 24-96 Consecutive Hours, Continuous Positive Airway Pressure (ICD-10-PCS; 2018-11-01)
PROC: 5A1955Z Respiratory Ventilation, Greater than 96 Consecutive Hours (ICD-10-PCS; principal; 2018-11-04)
PROC: 0BH17EZ Insertion of Endotracheal Airway into Trachea, Via Natural or Artificial Opening (ICD-10-PCS; 2018-11-04)
PROC: 0CJS8ZZ Inspection of Larynx, Via Natural or Artificial Opening Endoscopic (ICD-10-PCS; 2018-11-04)
PROC: 0B110F4 Bypass Trachea to Cutaneous with Tracheostomy Device, Open Approach (ICD-10-PCS; 2018-11-06)
PROC: 0GBJ0ZZ Excision of Thyroid Gland Isthmus, Open Approach (ICD-10-PCS; 2018-11-06)
PROC: 0DH63UZ Insertion of Feeding Device into Stomach, Percutaneous Approach (ICD-10-PCS; 2018-11-08)
PROC: 30233R1 Transfusion of Nonautologous Platelets into Peripheral Vein, Percutaneous Approach (ICD-10-PCS; 2018-11-15)
PROC: 02HV33Z Insertion of Infusion Device into Superior Vena Cava, Percutaneous Approach (ICD-10-PCS; 2018-11-16)
PROC: B548ZZA Ultrasonography of Superior Vena Cava, Guidance (ICD-10-PCS; 2018-11-16)
PROC: 0W9930Z Drainage of Right Pleural Cavity with Drainage Device, Percutaneous Approach (ICD-10-PCS; 2018-11-17)
DX: A41.9 Sepsis, unspecified organism (principal); R65.21 Severe sepsis with septic shock; E43 Unspecified severe protein-calorie malnutrition; J15.1 Pneumonia due to Pseudomonas; G93.49 Other encephalopathy; D61.818 Other pancytopenia; J96.21 Acute and chronic respiratory failure with hypoxia; Z99.81 Dependence on supplemental oxygen; R13.10 Dysphagia, unspecified; I46.9 Cardiac arrest, cause unspecified; I27.29 Other secondary pulmonary hypertension; N17.9 Acute kidney failure, unspecified; Z99.11 Dependence on respirator [ventilator] status; I27.81 Cor pulmonale (chronic); I47.1 Supraventricular tachycardia; I48.92 Unspecified atrial flutter; J44.0 Chronic obstructive pulmonary disease with (acute) lower respiratory infection; J44.1 Chronic obstructive pulmonary disease with (acute) exacerbation; D64.9 Anemia, unspecified; B19.20 Unspecified viral hepatitis C without hepatic coma; I10 Essential (primary) hypertension; I48.0 Paroxysmal atrial fibrillation; J93.9 Pneumothorax, unspecified; J96.22 Acute and chronic respiratory failure with hypercapnia; K21.9 Gastro-esophageal reflux disease without esophagitis; N40.0 Benign prostatic hyperplasia without lower urinary tract symptoms; Z87.891 Personal history of nicotine dependence; Z68.25 Body mass index [BMI] 25.0-25.9, adult
CPT/HCPCS: 36415; 36569; 36600; 71045; 71250; 71275; 74018; 76937; 80048; 80061; 80162; 80202; 80305; 82375; 82550; 82607; 82805; 82962; 83036; 83540; 83550; 83735; 83880; 84100; 84145; 84439; 84443; 84478; 84481; 84484; 85044; 86606; 86705; 86709; 86803; 86850; 86900; 86945; 87070; 87077; 87186; 87340; 87804; 93005; 93306; 93970; 94003; 94640; 94644; 94660; 96374; 96375; 99285; A6261; C1725; C9113; J0330; J0692; J1160; J1644; J1650; J1815; J1885; J1940; J1956; J2060; J2250; J2270; J2370; J2405; J2704; J2920; J2930; J3010; J3370; J3490; J7030; J7040; J7050; J7060; J7611; J7620; J7626; P9034; Q9967